=== PATIENT | female | born 1965 | race African-American/Black ===

== ENCOUNTER 2020-03-29 05:53 | Day surgery (SDC) | payer BC ==
--- NOTE | 2020-03-24 13:49 | Opthalmology H&P ---
Ophthalmology H&P H&P Chief Complaint: decreased vision in left eye HPI Vision Affects Ability to: read, manage personal affairs HPI Narrative Blurry vision Exam Visual Acuity: OD 20/160 OS HAND MOTION Tension: OD 13 OS 13 Eye Exam: normal OU: external exam, palpebral fissure-width, marginal reflex distance, levator function, corneas, anterior chambers; findings: lens - NS Cataracts OU, fundus exam - Retinal Ischemia,HTN Retinopathy OU Assessment/Plan Treatment Plan: cataract extraction w/ lens implant Goals of Treatment: improvement of vision, enhance quality of life Attestation Attestation The risks and benefits of the surgery as well as alternative procedures were explained to the patient in detail. Mehran Ibarra MD Mar 24, 2020 13:49
--- NOTE | 2020-03-24 13:51 | Pre-Procedure Note/Attestation ---
Pre-Procedure Note/Attestation Complete Prior to Procedure Planned Procedure: left Procedure Narrative: Cataract extraction with Intraocular lens implant left eye Indications for Procedure Pre-Operative Diagnosis: Nuclear sclerotic cataract left eye Attestation I attest that I discussed the nature of the procedure; its benefits; risks and complications; and alternatives (and the risks and benefits of such alternatives), prior to the procedure, with the patient (or the patient's legal human resources hr representative). I attest that, if there was a reasonable possibility of needing a blood transfusion, the patient (or the patient's legal human resources hr representative) was given the [facility] standardized written summary, pursuant to the [place] Blood Safety Act ([place] Health and Safety Code # 1645, as amended). I attest that I re-evaluated the patient just prior to the surgery and that there has been no change in the patient's H&P, except as documented below: Mehran Ibarra MD Mar 24, 2020 13:51
--- NOTE | 2020-03-24 15:34 | Opthalmology H&P ---
Ophthalmology H&P H&P Chief Complaint: decreased vision in right eye HPI Vision Affects Ability to: read, focus/use eyes together, manage personal affairs HPI Narrative Blurry vision Exam Visual Acuity: OD Counting fingers OS 20/30 Tension: OD 13 OS 14 Eye Exam: normal OU: external exam, palpebral fissure-width, marginal reflex di stance, levator function, corneas, anterior chambers, fundus exam; findings: lens - NS/PSC Cataracts OU Assessment/Plan Treatment Plan: cataract extraction w/ lens implant Goals of Treatment: improvement of vision, enhance quality of life Attestation Attestation The risks and benefits of the surgery as well as alternative procedures were explained to the patient in detail. Mehran Ibarra MD Mar 24, 2020 15:34
--- NOTE | 2020-03-24 15:35 | Pre-Procedure Note/Attestation ---
Pre-Procedure Note/Attestation Complete Prior to Procedure Planned Procedure: right Procedure Narrative: Cataract extraction with IOL implant right eye Indications for Procedure Pre-Operative Diagnosis: Nuclear sclerotic/Posterior subcapsular cataract right eye Attestation I attest that I discussed the nature of the procedure; its benefits; risks and complications; and alternatives (and the risks and benefits of such alternatives), prior to the procedure, with the patient (or the patient's legal associate financial representative). I attest that, if there was a reasonable possibility of needing a blood transfusion, the patient (or the patient's legal associate financial representative) was given the [facility] standardized written summary, pursuant to the [place] Blood Safety Act ([place] Health and Safety Code # 1645, as amended). I attest that I re-evaluated the patient just prior to the surgery and that there has been no change in the patient's H&P, except as documented below: Mehran Ibarra MD Mar 24, 2020 15:35
[2020-03-29] VITALS (9 sets, daily range): BP systolic 128–157; BP diastolic 74–105
[~2020-03-29] VITALS: Ht 157.5 cm; Wt 79.4 kg
[~2020-03-29 05:53] MED LIST: ATORVASTATIN CA20 MG ORAL; LISINOPRIL10 MG ORAL; PROAIR HFA8.5 GM INH
[2020-03-29] MEDS: Tropicamide 1% Opth 15ml Soln RIGHT EYE SCH ×3 (06:57→07:20)
[2020-03-29] MEDS: Phenylephrine 10% Opth Soln 5ml RIGHT EYE SCH ×3 (06:57→07:19)
[2020-03-29] MEDS ORDERED: Proparacaine 0.5% Opth Soln 15ml RIGHT EYE ONE (07:00)
[2020-03-29] MEDS ORDERED: Pilocarpine 1% Opth 15ml Soln ONE (07:00)
[2020-03-29] MEDS ORDERED: Akten 3.5% 1ml Btl RIGHT EYE ONE (07:00)
[2020-03-29] MEDS ORDERED: Maxitrol Opth Oint 3.5gm ONE (07:00)
[2020-03-29] MEDS ORDERED: Tetracaine 0.5% Opth 4ml Soln RIGHT EYE ONE (07:00)
[2020-03-29] MEDS ORDERED: prednisoLONE acetate 1% Opth Susp 1ml ONE (07:00)
[2020-03-29] MEDS ORDERED: Midazolam 2mg/2ml Inj ONE (07:09)
[2020-03-29] MEDS ORDERED: fentaNYL 100 mcg/2 mL IV ONE (07:09)
[2020-03-29] MEDS ORDERED: LR 1000ml 1,000 ML IVLG SCH ×2 (07:15→07:45)
[2020-03-29] MEDS ORDERED: Atropine Inj 1mg/10ml Syr IVP PRN (07:15)
[2020-03-29] MEDS ORDERED: Midazolam 2mg/2ml Inj IVP PRN (07:15)
[2020-03-29] MEDS ORDERED: DiphenhydrAMINE 50mg/ml Inj IVP PRN (07:15)
[2020-03-29] MEDS ORDERED: fentaNYL 100 mcg/2 mL IV PRN ×2 (07:15→07:45)
--- NOTE | 2020-03-29 07:22 | Anethesia Preoperative Eval ---
Lizbet Coto MD 03/29/20 0722: Anesthesia Pre-op PM/ROS General Date of Evaluation: Mar 29, 2020 Time of Evaluation: 07:18 Anesthesiologist: janessa ASA Score: ASA 3 Mallampati Score Class I : Soft palate, uvula, fauces, pillars visible Class II: Soft palate, uvula, fauces visible Class III: Soft palate, base of uvula visible Class IV: Only hard plate visible Mallampati Classification: Class II Surgeon: mario Diagnosis: od cataract Surgical Procedure: cataract extraction w/iol od Anesthesia History: none Social History: alcohol use Family History: no anesthesia problems Allergies: Coded Allergies: PENICILLINS (Verified Allergy, Intermediate, "breaks out"; itch, 03/29/20) Medications: see eMAR Patient NPO?: Yes Past Medical History Cardiovascular: Reports: HTN, other - hyperlipidemia Pulmonary: Reports: asthma PSxH Narrative: , left arm fx repair Anesthesia Pre-op Phys. Exam Physician Exam Constitutional: NAD Neurologic: CN 2-12 intact Cardiovascular: RRR Respiratory: CTA Gastrointestinal: S/NT/ND Airway Exam Mallampati Score: Class II MO: limited Neck: flexible TMD: 2fb ROM: limited Anesthesia Pre-op A/P Labs Microbiology Date/Time Source Procedure Growth Status 03/25/20 08:05 Nasopharynx Coronavirus COVID-19 PCR (JOLIE) - Final Complete Risk Assessment & Plan Assessment: asa3 Plan: mac Status Change Before Surgery: No Pre-Antibiotics Drug: Walt Rios MD 03/29/20 0740: Anesthesia Pre-op PMH/ROS General Date of Evaluation: Mar 29, 2020 Time of Evaluation: 07:35 Anesthesiologist: Noe ASA Score: ASA 2 Mallampati Classification: Class II Surgeon: Mario Diagnosis: R eye cataract Surgical Procedure: Cataract exraction Anesthesia History: none Family History: no anesthesia problems Allergies: Coded Allergies: PENICILLINS (Verified Allergy, Intermediate, "breaks out"; itch, 03/29/20) Medications: see eMAR Patient NPO?: Yes Past Medical History Cardiovascular: Reports: HTN; Denies: CAD, [place], valve dz, arrhythmia, other Pulmonary: Reports: asthma - stable on inhalers; Denies: COPD, BREANNA, other Gastrointestinal/Genitourinary: Reports: GERD - mild Neurologic/Psychiatric: Denies: dementia, CVA, depression/anxiety, TIA, other Endocrine: Denies: DM, hypothyroidism, steroids, other HEENT: Reports: cataract (L), cataract (R); Denies: glaucoma, ROBINSON (L), ROBINSON (R), other Hematology/Immune: Denies: anemia, DVT, bleeding disorder, other Musculoskeletal/Integumentary: Denies: OA, RA, DJD, DDD, edema, other Other: obesity PMH Narrative: as above PSxH Narrative: Anesthesia Pre-op Phys. Exam Physician Exam Constitutional: NAD Neurologic: CN 2-12 intact Cardiovascular: RRR, no M/R/G Respiratory: CTA Gastrointestinal: S/NT/ND Airway Exam Mallampati Score: Class II MO: full Neck: short ROM: full Teeth: intact Dentures: no upper, no lower Anesthesia Pre-op A/P Labs see chart Studies Pre-op Studies: EKG - SR Risk Assessment & Plan Assessment: ASA 2 Plan: MAC Status Change Before Surgery: No Pre-Antibiotics Drug: none Lizbet Coto MD Mar 29, 2020 07:22 Walt Liu MD Mar 29, 2020 07:40
[2020-03-29] MEDS ORDERED: LR 1000ml ONE (08:00)
[2020-03-29] MEDS ORDERED: Labetalol 5mg/ml 20ml vial IV ONE (08:00)
[2020-03-29] MEDS ORDERED: NS Irrig 1000ml ONE ×2 (08:00)
[2020-03-29] MEDS ORDERED: Lidocaine 4% Amp 5ml ONE (08:07)
[2020-03-29] MEDS ORDERED: EPINEPHrine 1mg/1ml Amp ONE (08:07)
[2020-03-29] MEDS ORDERED: acetaZOLAMIDE 500mg Inj ONE (08:08)
[2020-03-29] MEDS ORDERED: BSS 500ml btl ONE (08:08)
[2020-03-29] MEDS ORDERED: Carbachol 0.01% Op Soln 1.5ml vial ONE (08:08)
[2020-03-29] MEDS ORDERED: BSS 15ml BTL ONE (08:08)
[2020-03-29] MEDS ORDERED: Ciprofloxacin Opth Soln 5ml ONE (08:08)
[2020-03-29] MEDS ORDERED: Lidocaine 2% MPF 5ml Vial INJ ONE (08:08)
[2020-03-29] MEDS ORDERED: Sodium Hyaluronate 10 mg/ml 0.85ml ONE (08:09)
[2020-03-29] MEDS ORDERED: Bupivacaine 0.75% 30ml vial INJ ONE (08:09)
[2020-03-29] MEDS ORDERED: Povidone-Iodine 5% opth solution ONE (08:09)
--- NOTE | 2020-03-29 08:58 | Immediate Post-Op Evaluation ---
Immediate Post-Op Evalulation Immediate Post-Op Evalulation Procedure: R eye cataract extraction with IOL Date of Evaluation: Mar 29, 2020 Time of Evaluation: 08:57 IV Fluids: 300 Blood Products: none Estimated Blood Loss: none Urinary Output: none Blood Pressure Systolic: 140 Blood Pressure Diastolic: 76 Pulse Rate: 68 Respiratory Rate: 20 O2 Sat by Pulse Oximetry: 99 Temperature (Fahrenheit): 97.6 Pain Score (1-10): 1 Nausea: No Vomiting: No Complications none Patient Status: awake, patent, none Hydration Status: adequate Walt Liu MD Mar 29, 2020 08:58
--- NOTE | 2020-03-29 11:06 | 48 Hour Post Anesthesia Eval ---
Post Anesthesia Evaluation Procedure: R eye cataract extraction with IOL Date of Evaluation: Mar 29, 2020 Time of Evaluation: 11:04 Blood Pressure Systolic: 150 0: 76 Pulse Rate: 68 Respiratory Rate: 20 Temperature (Fahrenheit): 97.6 O2 Sat by Pulse Oximetry: 98 Airway: patent Nausea: No Vomiting: No Pain Intensity: 1 Hydration Status: adequate Cardiopulmonary Status: stable Mental Status/LOC: patient returned to baseline Follow-up Care/Observations: n/a Post-Anesthesia Complications: none Follow-up care needed: ready to discharge Walt Liu MD Mar 29, 2020 11:06
--- NOTE | 2020-03-31 09:22 | Brief Operative Note ---
Immediate Post Operative Note Operative Note Chief Complaint: Blurry vision Pre-op Diagnosis: Nuclear sclerotic/Posterior subcapsular cataract right eye Procedure: Cataract extraction with IOL implant right eye Post-op Diagnosis: Pseudo OD Surgeon: Mehran Ibarra MD Anesthesia: MAC Specimen: none Complications: none Condition: stable Fluids: LR Estimated Blood Loss: none Drains: none Implant(s) used?: Yes - IOL-OD Mehran Ibarra MD Mar 31, 2020 09:21
--- NOTE | 2020-03-31 09:30 | Operative Note - PDOC ---
Operative Note Operative Note Date of Operation/Procedure: Mar 29, 2020 Chief Complaint: Blurry vision Pre-op Diagnosis: Nuclear sclerotic/Posterior subcapsular cataract right eye Procedure: Cataract extraction with IOL implant right eye Post-op Diagnosis: Pseudo OD Surgeon: Mehran Ibarra MD Anesthesiologist: Walt Liu MD Anesthesia: MAC Specimen: none Complications: none Condition: stable Fluids: LR Estimated Blood Loss: none Drains: none Implant(s) used?: Yes - IOL-OD Indications for Procedure Nuclear sclerotic/Posterior subcapsular cataract right eye Description of Procedure This patient has been complaining of a visually significant cataract in the right eye with the best corrected visual acuity of counting fingers at a six foot distance. The patient complains of difficulties with glare in performing activities of daily living and wants to manage personal affairs with comfort and accuracy and see well enough to move with safety at home and outdoors. The risks, benefits and alternatives of the procedure were discussed with the patient in the office prior to scheduling surgery. All questions from the patient were answered after the surgical procedure was explained in detail. The risks of the procedure as explained to the patient include, but are not limited to, pain, infection, bleeding, loss of vision, retinal detachment, need for further surgery, loss of lens nucleus, double vision, etc. Alternative procedures were discussed which include, to do nothing or seek a second opinion. Informed consent for this procedure was obtained from the patient. The patient was referred to a primary care physician for a cardiopulmonary clearance prior to surgery, after proper evaluation was done patient was properly scheduled for outpatient surgery. The patient was brought to the operating room where the anesthesiologist established I.V. lines and cardiac monitoring leads. Mild intravenous sedation was administered. The patient was then prepared with a 5% solution of povidone-iodine to the conjunctival fornix and lashes, and a 5% solution of povidone-iodine to the lids and periorbital skin. The patient was then draped in the usual sterile fashion. A lid speculum was then placed in the operative eye. A keratome blade was then used to create a biplanar incision into the anterior chamber. Viscoelastics was then instilled into the anterior chamber. A curvilinear capsulorrhexis was then fashioned with an utrata forceps. A BSS was used with G-27 cannula was used to hydrodissect and hydrodelineate the lens nucleus. Paracentesis incision was made at 9 o'clock with sharp blade. The phacoemulsification unit, after being properly adjusted and tested, was then used to emulsify the nucleus. Residual cortical material was aspirated with the irrigation and aspiration unit. Healon was then instilled into the anterior chamber. The corneal wound was then enlarged to the size of the optic with the morro keratome blade. The intraocular lens was then inspected for right power and size and thought to be satisfactory. Then the lens was gently placed in the capsular bag. Positioning within the capsular bag was confirmed by direct visualization. Optic centration was accomplished with a Sinskey hook. Viscoelastics was removed from the anterior chamber using the irrigation and aspiration unit. The corneal wound was then tested for leaks and none were found. The lid speculum were then removed. Sponge and needle counts were correct. An eye patch and shield were placed over the operative eye. The patient was taken to the recovery room in stable condition. There were no complications. The patient tolerated the procedure well. The patient was then transferred to the ambulatory surgery unit in stable and satisfactory condition, was given detailed written instructions and asked to follow up in the office the next day. Mehran Ibarra MD Mar 31, 2020 09:30
== END 2020-03-29 10:05 | disposition home or self-care (01) ==
LOC: SUR 05:53
DX: H25.11 Age-related nuclear cataract, right eye (principal); H25.041 Posterior subcapsular polar age-related cataract, right eye; I10 Essential (primary) hypertension; E78.5 Hyperlipidemia, unspecified; Z88.0 Allergy status to penicillin; E11.9 Type 2 diabetes mellitus without complications; K21.9 Gastro-esophageal reflux disease without esophagitis
CPT/HCPCS: 66984; 94003; J0171; J0360; J1100; J2250; J2704; J3370; J7120; U0004; V2632; 94150